=== PATIENT | female | born 1990 | race Caucasian/White ===

== ENCOUNTER 2023-11-20 13:55 | Outpatient (CLI) | payer BC, SELFPAY ==
--- NOTE | 2023-11-20 14:00 | CRLHL7_ITS ---
For Patients: As a result of the Century Cures Act, medical imaging exams and procedure reports are released immediately into your electronic medical record. You may view this report before your referring provider. If you have questions, please contact your health care provider. INDICATION: First trimester scan, establish dates. COMPARISON: None. TECHNIQUE: Real-time conklin-scale imaging of the pelvis was performed. FINDINGS: Sonographic imaging demonstrates a single living intrauterine gestation. The embryo demonstrates a regular cardiac rate measuring 169 beats per minute. The embryo`s crown-rump length measurement of 5.4 cm corresponds to a gestational age of 12 weeks 0 days with a sonographic due date of 06/03/2024. Yolk sac measures 5.9 millimeters. There are no gross abnormalities noted within the embryo at this early state of development. The gestational sac has a normal appearance. There is no evidence of a perigestational hemorrhage. The amount of fluid within the sac appears appropriate for gestational age. The cervix is closed. The myometrium appears normal. The ovaries are of normal size. Corpus luteal cyst left ovary. There are no suspicious fluid collections noted in the cul-de-sac. IMPRESSION: Single living intrauterine with sonographic gestational age 12 weeks 0 days and sonographic due date of 06/03/2024. Yolk sac measures 5.9 millimeters, upper limits of normal. Dictated by Luís Ley MD @ 11/21/2023 8:04:11 PM (Electronically Signed)
== END 2023-11-20 13:56 | disposition home or self-care (01) ==
LOC: US 13:55
PROVIDERS: Visit Provider Registered Nurse
DX: Z34.91 Encounter for supervision of normal pregnancy, unspecified, first trimester (principal); Z3A.12 12 weeks gestation of pregnancy
CPT/HCPCS: 76801; 86592; 86703; 86704; 86706; 86762; 86787; 86803; 86850; 86900; 86901; 87086; 87340; 87491; 87591

== ENCOUNTER 2024-01-13 12:52 | Outpatient (CLI) | payer BC, SELFPAY ==
--- NOTE | 2024-01-13 13:00 | CRLHL7_ITS ---
For Patients: As a result of the 21st Century Cures Act, medical imaging exams and procedure reports are released immediately into your electronic medical record. You may view this report before your referring provider. If you have questions, please contact your health care provider. OB ULTRASOUND INDICATION: screen. COMPARISON: 11/09/2023. ROEL by LMP: 06/06/2024. 06/06/2024. GA: 19 w, 5 d. FINDINGS: position: Breech. Cervix: Visualized. Technique: Transabdominal. Length of closed cervix: 3.1 cm. Placenta position: Anterior. Placenta tip to internal OS: 4.7 cm. Umbilical Cord: 3-vessel cord. Placenta insertion: Central. Amniotic Fluid: 4.5 cm SDP SURVEY: Observed Structures: Calvarium/Spine: Cerebellum: 1.8 cm, 19 w 0 d. Cisterna Magna: 5.4 mm. Nuchal Fold: 4.6 mm. Lateral Ventricle: 6.0 mm. CSP: Yes. Midline Falx: Yes. Choroid Plexus: Yes. Spine: Not well seen. Abdomen: Stomach: Yes. Abd Cord Insertion: Yes. Urinary Bladder: Yes. Kidneys: Not well seen. Diaphragm: Yes. Face: Nose/lips: Yes. Orbital view: Yes. Profile: Yes. Limbs: Upper Extremities: Yes. Lower Extremities: Yes. Hands: Yes. Feet: Yes. Vascular: Four-Chamber Heart: Yes. LVOT: Yes. RVOT: Not well seen. 3VV: Yes. 3VTV: Yes. BPD: 4.4 cm. 19 w 2 d, 29 percent. HC: 16.4 cm. 19 w 1 d, 17 percent. AC: 14.4 cm. 19 w 5 d, 45 percent. FL: 3.0 cm. 19 w 2 d, 27 percent. FL/AC: 20.89 percent. HC/AC Ratio: 1.14. Heart rate: 149 beats per minute. age by this US: 19 w, 2 d. ROEL by this US: 06/06/2024. EFW: 295 g. Weight: 10 oz. Percentile by ROEL: 32 percent. IMPRESSION: 1. Measurements are consistent with dates. Good interval growth since the prior exam. 2. Spine, kidneys, and right ventricular outflow tract are not well seen. Recommend follow-up images in a couple weeks. 3. Otherwise normal anatomic survey. Ash Cruz M.D. Body/Diagnostic Radiologist [email or web address] JACKIE/Dictated by: Ash Cruz MD @ 01/13/2024 3:26:00 PM (Electronically Signed)
== END 2024-01-13 12:53 | disposition home or self-care (01) ==
LOC: US 12:53
PROVIDERS: Visit Provider Obstetrics & Gynecology
DX: Z34.92 Encounter for supervision of normal pregnancy, unspecified, second trimester (principal); Z3A.19 19 weeks gestation of pregnancy
CPT/HCPCS: 76805; 84439; 84443

== ENCOUNTER 2024-01-13 14:13 | Outpatient (CLI) | payer BC, SELFPAY | END 2024-01-13 14:14 | disposition home or self-care (01) | PROVIDERS: Visit Provider Obstetrics & Gynecology | DX: Z34.02 Encounter for supervision of normal first pregnancy, second trimester (principal); Z83.49 Family history of other endocrine, nutritional and metabolic diseases | CPT/HCPCS: 83520; 84439; 84443; 84481 ==

== ENCOUNTER 2024-02-05 13:39 | Outpatient (CLI) | payer BC, SELFPAY ==
--- NOTE | 2024-02-05 13:45 | CRLHL7_ITS ---
For Patients: As a result of the Century Cures Act, medical imaging exams and procedure reports are released immediately into your electronic medical record. You may view this report before your referring provider. If you have questions, please contact your health care provider. ROEL by LMP: 06/06/2024. GA: 22w, 4d. Single. INDICATION: Follow-up FAS, spine, kidneys, RVOT. CERVIX: Visualized. Measurement: 3.3. POSITIONING: Transverse right. AMNIOTIC FLUID: 4.7 cm. PLACENTA: Technique: Transabdominal. PLACENTA POSITION: Anterior. DOPPLER: heart rate: 150 bpm. Biometry: BPD: 5.4 cm. 22w, 2d, 34.1 percent. HC: 20.1 cm. 22w, 2d, 24.1 percent. AC: 19.6 cm. 24w, 2d, 88.4 percent. FL: 3.9 cm. 22w, 5d, 42.6 percent. FL/AC ratio: 20.14 percent. HC/AC ratio: 1.03. EFW: 588.17 g. Weight: 1 lbs, 5 oz. age by this US: 22w, 6d. ROEL by this US: 06/04/2024. Percentile by ROEL: 81.7 percent. IMPRESSION: Single live intrauterine gestation. The outflow tracts, kidneys and spine appear within normal limits. 22 weeks 6 days. ROEL of 06/04/2024. Miroslava Burgos M.D. Diagnostic/Breast Radiologist [email or web address] QUITA/david / bM/Dictated by: Miroslava Burgos MD @ 02/07/2024 8:31:00 AM (Electronically Signed)
== END 2024-02-05 13:40 | disposition home or self-care (01) ==
LOC: US 13:40
PROVIDERS: Visit Provider Obstetrics & Gynecology
DX: Z34.92 Encounter for supervision of normal pregnancy, unspecified, second trimester (principal); Z3A.22 22 weeks gestation of pregnancy
CPT/HCPCS: 76816

== ENCOUNTER 2024-03-04 13:10 | Outpatient (CLI) | payer BC, SELFPAY | END 2024-03-04 13:11 | disposition home or self-care (01) | LOC: NFLDREF 03-05 14:14 | PROVIDERS: Visit Provider Obstetrics & Gynecology | DX: Z34.92 Encounter for supervision of normal pregnancy, unspecified, second trimester (principal); Z3A.27 27 weeks gestation of pregnancy | CPT/HCPCS: 85461; 86592; 86850 ==

== ENCOUNTER 2024-05-02 09:26 | Outpatient (CLI) | payer BC, SELFPAY ==
[2024-05-02 09:35] VITALS: PULSE 85; O2SAT 98
[2024-05-02 09:40] VITALS: PULSE 78; O2SAT 98
[2024-05-02 09:43] VITALS: BP 110/71; PULSE 85; TEMP 36.6
[2024-05-02 10:24] LABS: Amnisure Rom* Negative
[2024-05-02 10:44] LABS: Trichomonas No Trichomonas Seen (None Seen); Yeast No Yeast Seen (None Seen)
[2024-05-02 10:45] LABS: Clue Cells No Clue Cells Seen (None Seen)
--- NOTE | 2024-05-02 12:34 | PC.OBNST ---
NST Note NST Note Start: 05/02/24 09:29 Freq: ONCE Status: Active Protocol: Document 05/02/24 12:21 FJZ (Rec: 05/02/24 12:22 FJZ Desktop) NST Note 1 Para (# of births) 0 EDC 06/03/24 Gestational Age In Weeks & Days 35 Weeks & 3 Days Patient Presented with Complaint(s) of Leaking fluid Reactive Yes RN Evert Hardy RN Date 05/02/24 Reactive Yes TRISTEN Prasad RN Date 05/02/24 OB NST charge Yes Complete NST Note via Write Note Yes The provider's electronic signature indicates the NST is reactive/appropriate for gestational age. *Note to provider: If an addendum is required, open the patient's chart and click on the note under the Nurse/Allied Health tab.
== END 2024-05-02 11:11 | disposition home or self-care (01) ==
LOC: OB OUT 09:26 → OB 09:27
PROVIDERS: Visit Provider Obstetrics & Gynecology
DX: O47.03 False labor before 37 completed weeks of gestation, third trimester (principal); Z3A.35 35 weeks gestation of pregnancy
CPT/HCPCS: 59025; 84112; 87210; G0463

== ENCOUNTER 2024-05-06 13:30 | Outpatient (CLI) | payer BC, SELFPAY | END 2024-05-06 13:31 | disposition home or self-care (01) | LOC: NFLDREF 05-13 01:45 | PROVIDERS: Visit Provider Obstetrics & Gynecology | DX: Z34.03 Encounter for supervision of normal first pregnancy, third trimester (principal) | CPT/HCPCS: 87081; 87653 ==

== ENCOUNTER 2024-05-25 10:04 | Inpatient (IN) | payer BC, SELFPAY ==
[2024-05-25] VITALS (26 sets, daily range): BP systolic 95–118; BP diastolic 55–76; PULSE 61–90; RESP 16; TEMP 36.4–36.8; O2SAT 91–100; BMI 28.4; BMI 28.3
[2024-05-25] MEDS: LACTATED RINGERS 1000 ML 1,000 ML IV (09:45)
--- NOTE | 2024-05-25 09:51 | P.OBHP_ITS ---
OB - H&P: HPI Labor/Induction History of Present Illness Time Seen by Provider: 09:51 Date Seen: 05/25/24 Chief Complaint: Rule out labor, spontaneous decelerations Chief complaint: maternity Narrative: Shant is a 33-year-old at 38 weeks 5 days gestational age by first-trimester ultrasound who presented to triage for rule out labor. is complicated by a history of anxiety and panic disorder. Patient noted onset of latent labor yesterday, progressing to regular/painful uterine contractions overnight. Prior to arrival, she noted her contractions were occurring about every 2 minutes. She noted some dark red bleeding this morning, small volume that was mixed with mucous. She denies any rufino vaginal bleeding. No leakage of fluid consistent with rupture of membranes. She notes baby seems to be a bit less active over the last day, but did get a normal kick count yesterday. She is otherwise in her normal state of health. Specific Issues/Plans Shant G1 Partner: Augie. Low risk NIPT, baby girl! Name: undecided. # Anxiety. Well managed on 20 mg of citalopram. #Rh NEGATIVE. * Received RhoGam 03/04/24 # Indeterminant Hep B Ab. - low risk for hepB, no indication for repeat vaccination at this time. # Anemia: hgb 10.7 at 27 weeks Start ferrous sulfate QOD Stop vitamin if it has iron in it. Recheck hgb at 34 weeks: 11.2 Ultrasounds: 01/13/2024: Anterior placenta, no previa, three-vessel cord, normal fluid, EFW 32%, AC 45%. Spine, kidneys, and RVOT not well seen. Otherwise normal anatomy. Covid: Completed, not up-to-date boosters. Recommended. Patient declined. Flu: declined 03/04/2024 Tdap: 04/01/24 RSV: 04/15/24 Rhogam: 03/04/2024 Meds Home Medications and Allergies Home Medications ?Medication ?Instructions ?Recorded ?Confirmed ?Type docosahexaenoic acid 200 mg 200 mg PO DAILY 11/20/23 05/20/24 History capsule ( DHA) psyllium husk 0.4 gram capsule 0.4 g PO ONCE 11/20/23 05/20/24 History (Metamucil) ferrous sulfate 324 mg (65 mg 324 mg PO Q OTHER DAY 03/18/24 05/20/24 History iron) tablet,delayed release Allergies Allergy/AdvReac Type Severity Reaction Status Date / Time No Known Drug Allergies Allergy Verified 05/20/24 13:51 OB - H&P: Exam Physical Exam: Vital signs: Pulse Ox 100 05/25/24 09:47 Narrative: General: Alert and oriented, no acute distress. Lying on her left side, grimaces with contractions. Psych: Appropriate mood and affect Abdomen: Gravid. Tyson regularly, resting tone is soft. FHR: Immediately with initiation of external monitoring, there was note of recurrent and spontaneous decelerations to a cecil of 70 beats per minute. heart rate improved to about 120bpm, then gradually decreased to a cecil of 90, improved to baseline of 140bpm and decelerated again to a cecil of 110bpm. Throughout this time, maternal repositioning was initiated for resuscitation. I was called and requested at the bedside, requested RN draw up terbutaline due to concern for tachysystole. When I arrived to the bedside, FHR was noted to be 140bpm, terbutaline was held. IV insertion was ongoing. Requested stat labs including CBC, type and screen and coags. Requested we start an IV fluid bolus and plan for admission. Cervix: 8/100/0, bulging bag of water. Cephalic presentation. OB - Problem Based A/P Additional Plan (1) : Status: Acute (2) History of panic attacks: Problem details: Before starting anxiety meds. Status: Acute (3) Anxiety: Status: Chronic Plan Shant is a 33 at 38w5d gestational age admitted for spontaneous onset of labor and category 2 heart rate tracing. is complicated by a history of anxiety and panic disorder. Patient is 8/100/0 on admission. She initially had recurrent decelerations, but this responded well to resuscitation to the matters with IV fluids and maternal repositioning. She is hopeful for an epidural placement, anesthesia notified. Just prior to transfer to a labor room, SROM occurred with meconium-stained fluid at 1006. Patient noted increased pelvic pressure and urge to push. She was emergently transferred into labor room, where monitoring was resumed. Sterile vaginal exam confirmed she was 10/100/+1. FHR was noted to be 90bpm. Maternal expulsive efforts began, anesthesia was called off. Pediatrics was requested for delivery. BT O negative, GBS negative. Please see vaginal delivery note for complete details.
[2024-05-25 10:02] LABS: Basophils Percent Auto 0.1 % (0.0-3.0); Eosinophils Percent Auto 0.2 % (0.0-7.0); Hematocrit 35.8 % (33.0-51.0); Hemoglobin* 12.5 gm/dL (12.0-16.0); Immature Granulocytes Pct Auto 0.5 %; Lymphocytes Percent Auto 10.1 % (20-44); Mean Corpuscular HGB Conc 35 gm/dL (32-36); Mean Corpuscular Hemoglobin 30 pg (26-34); Mean Corpuscular Volume 86 fL (80-100); Monocytes Percent Auto 4.9 % (0.0-11.0); Neutrophils Percent Auto 84.2 % (42.0-72.0); Platelet Count* 188 K/uL (140-440); RDW Coefficient of Variation % 12.5 % (11.5-15.5); Red Blood Count 4.17 m/uL (4.00-5.20); White Blood Count* 16.76 K/uL (4.50-11.00)
[2024-05-25 10:10] LABS: Slide Review Reflex No
[2024-05-25 10:17] LABS: INR 0.94 (0.91-1.10); Prothrombin Time 13.1 Seconds
[2024-05-25 10:18] LABS: Fibrinogen* 567 mg/dL (200-450); Partial Thromboplastin Time* 26 Seconds (23-33)
[2024-05-25] MEDS: OXYTOCIN 30 unit/500 ML in NS 30 UNIT/500 ML BAG 300 UNIT IVPB (10:21)
[2024-05-25] MEDS: fentaNYL 100 MCG/2 ML inj IVP (10:28)
[2024-05-25] MEDS: METHYLERGONOVINE MALEATE 0.2 MG/ML INJ IM (10:32)
[2024-05-25] MEDS: LIDOCAINE 1 % PF 30 ML INJECTION (10:40)
[2024-05-25] MEDS: TRANEXAMIC ACID 100 MG/ML INJ 1000 MG IV (10:52)
[2024-05-25] MEDS: ONDANSETRON 2 MG/ML inj 4 MG IV (11:02)
--- NOTE | 2024-05-25 12:01 | W.PM.VAGDEL1 ---
Procedure Procedure Done: Global Procedure Details: Vacuum assisted vaginal delivery Manual removal of the placenta Vaginal laceration repair Events: Meconium Stained Fluid and Other (Precipitous labor) Intrapartal Events: Precipitous Labor <3 Hrs Delivery monitor: internal FHT Route of delivery: vacuum extraction Indication for instrumentation: nonreassuring FHR tracing Laceration description: Vaginal - 2nd Degree Delivery repair: Vicryl Estimated blood loss (mL): 1,250 Anesthesia type: IV fentanyl for manual removal of placenta and repair Disposition: floor Complications: hemorrhage secondary to bleeding vaginal laceration and suspected abruption requiring manual extraction of the placenta Narrative: Carla Mendez is a 33 yo at 38w5d GA admitted for spontaneous onset of labor and nonreassuring heart tones. is complicated by precipitous labor, anxiety. heart tones on admission were category 2. Her labor progressed spontaneously without augmentation. Natural methods were used for pain control due to precipitous delivery. Status of bag of womack: SROM occurred shortly after arrival to the hospital, meconium-stained fluids. heart tones during active labor were category 2. She was complete at 1012, during which time heart tones were 80 beats per minute. I requested a scalp electrode, this was applied emergently no complication. FSE did confirm gradual improvement in the heart rate to 100 beats per minute. station was noted to be +1. Decision was made to proceed with a trial of pushing, to see if descent could be accomplished with maternal effort in an expeditious manner. After single expulsive effort, descent was noted to +2. Recurrent variable deceleration was noted with pushing effort, then gradually improved to 90-100bpm. A 2nd spontaneous pushing effort commenced, where descent made to +3 station, direct OA position. This time, heart rate only improved to 80-90 beats per minute after push. I then recommendation we proceed with a vacuum assisted vaginal delivery due to recurrent variable decelerations without appropriate recovery. Emergent verbal consent was obtained, where I reviewed the benefit of an expedited delivery and risks including head bruising, bleeding, laceration, nerve palsy and increased incidence of maternal lacerations. Verbal consent was given. Vaginal exam revealed adequate pelvis, fetus in direct OA position and +3 station. A Kiwi vacuum was applied over the sagittal suture, approximately 3cm in front of the posterior fontanelle at 1019. Vacuum pressure was created with the hand pump, not to exceed 500mg ([place]). The edge of the vacuum cup was palpated circumferentially to confirm that no maternal tissue was entrapped under the cuff. With the left hand applying count pressure on the vacuum cup, gentle traction was applied along the pelvic axis in coordination with the next uterine contraction and maternal expulsive effort. Baby descended easily to with a single pull/push effort, no pop offs occurred. The vacuum was removed. head delivered OA atraumatically at 1020, restituted CRISTOPHER and the anterior and posterior shoulders delivered without difficulty at 1020. Nuchal cord: absent. The cord was clamped and cut immediately, where shortly thereafter cry was noted. Active management of the third stage occurred with IV pitocin and gentle cord traction, however brisk bleeding was noted. I attempted to tamponade the vaginal/perineum, but bleeding persisted. Maternal expulsive effort to facilitate placenta delivery was attempted and unsuccessful. I requested 100mcg IV fentanyl be administered. Explained to Carla that I would recommend we proceed with manual removal of the placenta in the setting of active bleeding, QBL 750mL. Fentanyl 100mcg was administered IV at 1028. Manual removal of the placenta was performed, where the placenta delivered at 1031. Methergine was administered at 1032 to reinforce uterine tone and reduce bleeding. Inspection of the placenta was performed, where no obvious disruption or retained portions were noted. Still, I did proceed to a manual sweep of the uterus ensure all placenta/membrane was removed. No further tissue was noted with manual sweep of the uterus. Cord gases sent: yes Cord blood sent for infant ABO: yes details: - Liveborn female fetus at 1020 - weight 3000g - APGARs were 7 and 9 at 1 and 5 minutes respectively - No bruising/swelling noted at site of vacuum application per POLLY Whitting[place] Perineum and vagina were inspected, where a complicated vaginal laceration was noted and found to be actively bleeding. Specifically, there was a midline vaginal laceration that extended to the introitus then extended laterally (left greater than right). IV TXA was requested and administered. A 2-0 vicryl was applied in a running, locking fashion starting at the apex of the right lateral aspect of the laceration. This was run to the midline and tied. A second 2-0 vicryl was then applied at the most proximal aspect of the vaginal laceration and tied. A 2cm segment of the distal vagina was noted to have nearly avulsed and was retracting to the left. The base of the vaginal defect was repaired with several interrupted 2-0 vicryl sutures. The retracted vaginal tissue was then reapproximated, where two figure of eight sutures were utilized to secure this and approximate it to the intact vaginal tissue. A 2-0 vicryl was then utilized to reinforce the vaginal repair proximal to distal in a running/locking fashion until the hymen was encountered. A single deep suture was applied at the vaginal introitus to reapproximate skin. The perineal skin was essentially intact, aside from a small area of separation just at the introitus left of midline. A subcuticular stitch was applied with 3-0 vicryl and tied to close this. Excellent hemostasis was noted. Excellent uterine tone noted. Post-delivery TAUS was performed ensuring a thin, homogenous endometrial stripe with no evidence of retained products of conception. The following counts were correct: sponges, needles, instruments. Mother and infant in stable condition following the . Gender: Female presentation: vertex Placental Delivery Description: Manual Removal
[2024-05-25] MEDS: CEFAZOLIN 2 GM in 0.9 % SODIUM CHLORIDE Mini-bag 100 ML IVPB (14:45)
[2024-05-25] MEDS: ACETAMINOPHEN 500 MG TABLET 1000 MG PO ×2 (15:50→23:02)
[2024-05-25] MEDS: IBUPROFEN 600 MG TABLET PO (20:01)
[2024-05-26 05:46] VITALS: BP 118/73; PULSE 89; RESP 18; TEMP 36.6; O2SAT 99
[2024-05-26 06:53] LABS: Hemoglobin* 9.1 gm/dL (12.0-16.0)
[2024-05-26] MEDS: DOCUSATE SODIUM 100 MG CAPSULE PO (07:48)
[2024-05-26] MEDS: IBUPROFEN 600 MG TABLET PO ×2 (07:49→16:28)
[2024-05-26 09:10] VITALS: BP 105/67; PULSE 105; RESP 16; TEMP 36.9; O2SAT 97
--- NOTE | 2024-05-26 10:23 | P.OBPN_ITS ---
OB - PN:Subj Subjective Date Seen: 05/26/24 Patient comments OB post-: no complaints, pain well controlled, tolerating diet and flatus present [place] status: (working on latch) and doing well feeding status: exclusively Narrative: Carla feels well.? Her pain is well controlled with current medications.? She has no new complaints.? Urinary output is adequate and she is voiding without difficulty.? Has a good appetite, is tolerating a general diet, is passing flatus, and has not had a bowel movement.? Has small amount of rubra lochia.? She is ambulating well.?She is working on baby waking to [employer]. She requested to have her perineum looked at but denies concerns with how it is feeling. It look well approximated with mild swelling. OB - PN: Obj Exam Physical Exam: Vital signs: Temp Pulse Resp BP Pulse Ox O2 Del Method 98.5 F 105 H 16 105/67 97 Room Air 05/26/24 09:10 05/26/24 09:10 05/26/24 09:10 05/26/24 09:10 05/26/24 09:10 05/26/24 09:10 Narrative: GENERAL APPEARANCE:? normal affect, alert, no distress? MOOD:? appropriate? CHEST:? clear to auscultation and percussion? HEART:? regular rate and rhythm? ABDOMEN:? soft, non-tender the uterine fundus is U/2 and is appropriate for the stage of recovery. PERINEUM:? mild edema of the perineum, there is a 2nd degree laceration that is healing well.? EXTREMITIES:? normal and no edema? OB - PN: Obj Data Labs Labs: Laboratory Results - last 24 hr 05/25/24 05/25/24 05/26/24 09:42 11:30 06:30 Hgb 11.0 L 9.1 L Blood Type O Negative Antibody Screen POSITIVE Screen Negative Crossmatch (AHG) See Detail OB - PN: A/P Delivery Assessment and Plan (1) : Status: Acute (2) History of panic attacks: Problem details: Before starting anxiety meds. Status: Acute (3) Anxiety: Status: Chronic Plan day: 1 Plan: routine care Comments: Anticipate discharge home tomorrow.
[2024-05-26] MEDS: FERROUS SULFATE 325 MG TABLET PO (13:05)
[2024-05-26] MEDS: ACETAMINOPHEN 500 MG TABLET 1000 MG PO (13:05)
[2024-05-26 16:05] VITALS: BP 101/65; PULSE 84; RESP 16; TEMP 36.7; O2SAT 97
[2024-05-27 00:18] VITALS: BP 112/72; PULSE 84; RESP 16; TEMP 36.3; O2SAT 97
[2024-05-27 01:01] LABS: Rapid Plasma Reagin (RPR) Non Reactive (Non Reactive)
--- NOTE | 2024-05-27 08:19 | PM.OBDSVD1 ---
DS: Providers Provider Date Seen: 05/27/24 Date of admission: 05/25/24 10:04 Primary care physician: Not a Local Provider Admitting Clinician: Patricia Khanna MD Attending Physician on discharge: Charlene Garcia CNM DS: Diagnosis Discharge Diagnosis (1) care and examination immediately after delivery: Status: Acute (2) Lactating mother: Status: Acute (3) Anemia due to acute blood loss: Status: Acute (4) Anxiety: Status: Chronic Exam Narrative: Exam Narrative: GENERAL APPEARANCE:? normal affect, alert, no distress MOOD:? appropriate CHEST:? clear to auscultation HEART:? regular rate and rhythm ABDOMEN:? soft, non-tender the uterine fundus is At Umbilicus, Midline and is appropriate for the stage of recovery. PERINEUM:? mild edema of the perineum, there is a vaginal laceration,?2nd degree, that is healing well. EXTREMITIES:? normal and no edema Const: Vital Signs, click to edit/add: Vital Signs - 24 hr 05/26/24 09:10 05/26/24 16:05 05/27/24 00:18 Temperature 98.5 F 98.0 F 97.3 F L Pulse Rate [Pulse Oximeter] 105 H 84 84 Respiratory Rate 16 16 16 Blood Pressure [Ri ght Arm] 105/67 101/65 112/72 Pulse Oximetry 97 97 97 Oxygen Delivery Me thod Room Air Room Air Room Air Documenting provider has reviewed patient's vital signs: yes OB - DS: Summary Hospital Course Hospital Course: Carla is a 33 y.o. G 1 P 1 who was admitted to [facility] for spontaneous onset of labor.?She had a vacuum assisted vaginal delivery that was complicated by PPH of 1250. The patient feels well. ?The pain is well controlled with current medications. ?She has no new complaints. ?She is breast feeding and reports things are going well. the patient has done well.? Vitals have been stable.? She has remained afebrile.? Has a good appetite, is tolerating a general diet. ?She is voiding without difficulty.? She is passing gas and has not had a bowel movement.? She is ambulating and denies any dizziness.? Has small amount of rubra lochia. She is planning condoms for prevention. Problems: Anemia Discharge home with baby.? Follow up in 2 weeks and 6 weeks.? , may see if needed? Hgb 9.1. Iron supplement ordered orally every other day?? For pain control of perineum, breast and pelvic pain, take 600 mg Ibuprofen every 6 hours as needed by mouth or 1000 mg acetaminophen (Tylenol) every 6 hours by mouth as needed. You can alternate these so you are taking something every 3 hours as needed. A heating pad can also be used for your abdomen or breasts. You may also take docusate sodium up to twice daily to soften your stools and help to prevent constipation. You may wean off of it when your stools return to normal.? Peripartum Data delivery method: Vaginal Laceration description: Vaginal - 2nd Degree complications: none [place] Infant Gender: Female Discharge Plan: Home Status at Discharge Functional status at discharge: independent ambulation Overall status at discharge: patient is progressing back to baseline Time Spent with Patient Time attestation: Total time spent providing and/or coordinating discharge services: Time spent: Less than 30 minutes Discharge Plan Discharge Disposition: Home, Self-Care Date of Admission: 05/25/24 10:04 Attending Provider on Discharge: Charlene Garcia Primary Care Provider: Provider,Not a Local Condition: Stable Anticipated Discharge Date/Time: 05/27/24 12:00 Discharge Medications: New acetaminophen 500 mg Tablet 1,000 mg PO Q6H PRN (Reason: pain/fever) Qty: 0 0RF ferrous sulfate 325 mg (65 mg iron) Tablet 325 mg PO DAILYWM Qty: 60 0RF docusate sodium 100 mg Capsule 100 mg PO DAILY Qty: 90 0RF ibuprofen 600 mg Tablet 600 mg PO Q6H PRNQty: 60 0RF Continued ferrous sulfate 324 mg (65 mg iron) tablet,delayed release (DR/EC) 324 mg PO Q OTHER DAY DHA 200 mg capsule 200 mg PO DAILY psyllium husk [Metamucil] 0.4 gram capsule 0.4 g PO ONCE escitalopram oxalate 20 mg tablet 20 mg PO QDAY Qty: 90 3RF Discharge Orders: Discharge Order (Routine); Ordered 05/27/24 Ordered By: Charlene Garcia Patient Education: OB Over the Counter Medication Information, OB Vaginal/Breast Feeding Additional Instructions: Discharge instructions were reviewed with the patient including signs and symptoms of infection and home going medications Nothing vaginally for 6 weeks: no tampons or intercourse Off Work or School for 6 weeks 2-week visit: discuss infant feeding concerns, review control options and screen for anxiety/depression. 6-week visit for an annual exam. consultation services are available to all mothers and babies for the first year after delivery.? To make an appointment, please call [phone]. Activity Level: Activity as Tolerated Discharge Diet: Regular Follow Up Appointments: [facility] [Provider Group] Forms: [employer] Info Instructions
[2024-05-27 08:50] VITALS: BP 116/74; PULSE 102; RESP 16; TEMP 36.6; O2SAT 98
[2024-05-27] MEDS: DOCUSATE SODIUM 100 MG CAPSULE PO (08:50)
[2024-05-27] MEDS: FERROUS SULFATE 325 MG TABLET PO (08:50)
[2024-05-27] MEDS: IBUPROFEN 600 MG TABLET PO (08:50)
== END 2024-05-27 13:35 | disposition home or self-care (01) | DRG 541 ==
LOC: OB OUT 10:04 → OB 10:05
PROVIDERS: Admitting Provider Obstetrics & Gynecology; Visit Provider Obstetrics & Gynecology
DX: O26.893 Other specified pregnancy related conditions, third trimester (principal); Z67.41 Type O blood, Rh negative; O76 Abnormality in fetal heart rate and rhythm complicating labor and delivery; O72.1 Other immediate postpartum hemorrhage; O99.344 Other mental disorders complicating childbirth; F41.0 Panic disorder [episodic paroxysmal anxiety]; O99.02 Anemia complicating childbirth; D62 Acute posthemorrhagic anemia; O70.1 Second degree perineal laceration during delivery; O77.0 Labor and delivery complicated by meconium in amniotic fluid; O62.3 Precipitate labor; Z37.0 Single live birth; Z3A.38 38 weeks gestation of pregnancy
CPT/HCPCS: 36415; 76815; 85018; 85025; 85384; 85461; 85610; 85730; 86592; 86850; 86870; 86880; 86900; 86901; 86922; 88307; A9270; J0690; J2003; J2210; J2405; J2791; J3010; J7120

== ENCOUNTER 2024-05-30 15:00 | Outpatient (CLI) | payer BC, SELFPAY ==
--- NOTE | 2024-05-30 15:28 | W.PM.LAC.MC ---
Consult Note - Mom Date of Visit Date of visit: 05/30/24 Reason for consultation: Assistance Needed (latch assist, painful) and Breast/Nipple Issue Visit Code: Visit Patient's Information Phone number: [phone] : 1 Para: 1 Allergies No Known Drug Allergies Allergy (Verified 05/20/24 13:51) Mother's medical history: Post hemorrhage (1250 EBL) Mother's Medical History: Medical History (Updated 05/28/24 @ 00:00 by Background Daemon) Encounter for preconception consultation ?Z31.69 - Encounter for other general counseling and advice on procreation (ICD-10) Evaluate anatomy not seen on prior sonogram History of panic attacks ?Z86.59 - Personal history of other mental and behavioral disorders (ICD-10) Delivery Information Delivery type: Vaginal Gestational Age: 38+3 Gestational Weight For Age: AGA Weight: 3 kg Discharge Weight: 2.835 kg Percentage weight loss: 5.5 Baby's Information Baby's Age at Visit: 5 days Baby's Provider or Clinic: [facility] Jaundice: Yes Past Experience Past Experience: No Current Frequency of Day Feedings: every 3 hrs day and night; wakes self ~50% of the time Both Breasts: Yes (sometimes) Suck: starts strong, gets lazy about 8-10 min Latch: seems deep but still painful Length of Time: 10-15 min Goals: not sure yet Pumping Pumping: Yes Quantity Pumped: 40 ml with one pumping so far Supplementing EBM Supplement: No Formula Supplement: No Baby Elimination Number of Wet Diapers a Day: 6 or more Number of BM a Day: 3 in last 24 hrs, yellow, seedy Breast/Nipple Condition Breast Information: Breasts are mostly symmetrical with rounded lower quadrants, intramammary distance is less than 1.5 inches. No erythema. Left breast slightly larger since babe not nursing as well on that side. Nipples are supple, everted prior to feeding. Breast Shape: Round Engorgement: Yes Interventions for Engorgement: Warm Pack and Hand Expressing Breast Milk Maternal Nipple Condition - Left: Common Nipple and Cracking/ Fissures Maternal Nipple Condition - Right: Common Nipple Sore Nipples: Yes Interventions for Sore Nipples: Lansinoh/Nipple Cream and Soothies/Hydrogel Pads Baby Assessment Skin: Normal and Yellow (head to mid-chest) Tongue/frenulum: Restricted mid-range Palate: Average Lips: Relaxed and Symmetrical Jaw Alignment: Symmetrical Mucosa: [place], moist Onsite Observation Pre-Feed weight: 2.92 kg Post-Feed weight: 2.946 kg Milk Transferred (mL): 26 Position: Football (right) and Other (refused latching to left side) Attachment/latch-on achieved: With difficulty Suck pattern: Suck burst and normal rest Swallow: Audible, consistent Behavior following feed: Alert, fussy Pre-Nursing Left Nipple: Redness Pre-Nursing Right Nipple: Redness Post-Nursing Right Nipple: Redness Assessments/Interventions Assessments/Interventions: observation: Mom attempted to latch baby to left breast but babe unwilling despite multiple positions tried, calming techniques, hand expression tried. Then attempted to latch baby to right breast, which is usually easy but babe still fussy with this. Eventually latched well and nursed for 13 minutes, transferred 26 ml of milk. Still acting hungry, tried again to latch baby to left side and babe again unwilling despite multiple attempts. Mom pumped and got 25 ml of milk; babe too 15ml via paced bottle feeding as was content. Mom's nipples look pretty similar so unclear as to baby's preference for right breast; seems more than positioning given multiple positions tried. Babe does have a posterior tongue tie; discussion about this and how it can affect feeding with parents. Referral to Pediatric Dentist given for further evaluation. Mom to pump left breast if babe won't nurse on that side to maintain milk supply and to have EBM for baby. Parents will bottle feed EBM; have Dr. Tineo bottles at home. Paced feeding discussed as well feeding volumes expected over next few days/week. Education provided: Early feeding cues to maximize timing of latching, Asymmetric latch technique for wide/deep latch to increase milk, Transfer for baby and increase comfort for mom, Supply/demand nature of milk supply, Need for frequent stimulation/milk removal, Sore nipple treatment options (breast shells discussed for nipple healing), Hand expression, Alternative feeding methods (SNS, cup, finger feeding, bottling) (parents asking about bottle options so discussed for supplementing with eBM), Use of nipple shield (mom may decide to try at home if latching continues to be an issue), Pumping for milk management (especially if babe not nursing on left side) and Milk collection, storage Feeding Plan: Continue to feed every 2-3 hours Offer both breasts ea feeding; if babe won't latch, need to pump breast not fed from for milk supply. Ok to pump about what babe needs and not a lot more to prevent oversupply. Babe latching might be sporadic; parents asked about pumping and bottling and reviewed this option with them if they desire. Mom would like to continue to work on some but recognizing current struggles and how to work within them both for her own nipple pain as well as baby's milk needs. Follow-Up Suggested follow up: Phone call in 24-48 hours (call in 4 days for update; they will call sooner with questions/concerns) Recommend baby be seen by provider for:: Pediatric Dentist re: tongue tie release Time Spent Time spent with patient (min): 90 (reviewing EMR and face to face with patient, , and ) Meds Home Medications and Allergies Home Medications ?Medication ?Instructions ?Recorded ?Confirmed ?Type docosahexaenoic acid 200 mg 200 mg PO DAILY 11/20/23 05/26/24 History capsule ( DHA) psyllium husk 0.4 gram capsule 0.4 g PO ONCE 11/20/23 05/26/24 History (Metamucil) ferrous sulfate 324 mg (65 mg 324 mg PO Q OTHER DAY 03/18/24 05/26/24 History iron) tablet,delayed release Allergies Allergy/AdvReac Type Severity Reaction Status Date / Time No Known Drug Allergies Allergy Verified 05/20/24 13:51
== END 2024-05-30 15:01 | disposition home or self-care (01) ==
LOC: OB LAC 15:04
PROVIDERS: Visit Provider Obstetrics & Gynecology
DX: Z39.1 Encounter for care and examination of lactating mother (principal)
CPT/HCPCS: G0463

== ENCOUNTER 2024-07-06 11:57 | Outpatient (CLI) | payer BC, SELFPAY | END 2024-07-06 11:58 | disposition home or self-care (01) | PROVIDERS: Visit Provider Registered Nurse | DX: R32 Unspecified urinary incontinence (principal); Z83.49 Family history of other endocrine, nutritional and metabolic diseases; Z13.29 Encounter for screening for other suspected endocrine disorder | CPT/HCPCS: 84443; 87086 ==

== ENCOUNTER 2024-11-16 11:00 | Outpatient (RCR) | payer BC, SELFPAY ==
--- NOTE | 2024-10-05 08:35 | PT.OPDN ---
PT [place] [facility] Daily Note PT [facility] Daily Note Start: 07/08/24 07:27 Freq: Status: Active Protocol: Document 10/05/24 07:33 ARR (Rec: 10/05/24 08:34 ARR [email or web address]) E-signed By Simran Lopez DPT PT OP Daily Progress Note Visit Information Note Type Daily Note,Recert/Progress Note Visit Number 10 Insurance Information Insurance Name [employer] Insurance POC 07/08 Information/Comments POC 1 x 10 Medical Diagnosis PFM weakness N81.89 female genital prolapse Treating Diagnosis K59.00 Constipation, unspecified R27.8 Lack of coordination (muscle incoordination) N39.46 Mixed incontinence Referring MD Nicloe Astudillo, [facility]) Subjective Preferred Name [facility] Subjective - Back at work x 2 weeks. Works from home. - Pain with intercourse 20%. - Urinary leakage can happen - more when holding 4 hours. Will feel like it's starting to leak. Prior to baby would go 6-7 hours prior to voiding. -Still difficult to stop a urine stream -Occasionally will have leakage with transfers Home Exercise Home Exercise OTHER: Comments -PF Check ins and drops 07/08 - awareness of tip toes squeezing thighs -AZO - discussion Access Code: [email or web address] URL: [email or web address] Date: 07/15/2024 Prepared by: Simran Lopez Program Notes -Add breathing into ribcage - hands on ribs during check in's 4-5x/day Exercises - Sidelying Thoracic Rotation - 1 x daily - 4-5 x weekly - 6-8 reps - mobility exercise type - Adductor Rock Back - 1 x daily - 4-5 x weekly - 6-8 reps - mobility exercise type - Cat-Camel - 1 x daily - 4-5 x weekly - 4-5 reps - Bolstered Child's Pose Breathing - 1 x daily - 4-5 x weekly - 2 reps - 30 sec hold - mobility exercise type Objective Other/Pertinent INTERNAL EXAMINATION INTRAVAGINAL 07/08/24: Objective EXTERNAL EXAM: -Sensation: intact to touch -Gaping: none -Tension/scar: inferior near 5 oclock position -Skin integrity: increased erythema to vaginal vestibule -Perineum: elevated (concave) -Cough: bulge -Lifting contraction: slight anal lift -Bulge: nil -Prolapse: not able to assess due to difficulty coordinating bearing down -Hemhorroids: NT VAGINAL INTERNAL EXAM: -Prolapse: NT POPQ NT Tenderness/pain to palpation/tone: : -Layer 1: ischiocavernosus / bulbospongiousus / superficial transverse perineal -Layer 2: deep transverse perineal -Layer 3: puborectalis / pubococcygeus / iliococcygeus *Inc?d tone throughout with minimal TTP. Strength ( R / C / L): -Power (MMT): 0 Other: -Breathing examination: dec?d posterior and lateral ribcage mvmt with inhalation -Coordination: bearing outward into lower abdominal wall noting increased bearing down into pelvic floor EXTERNAL OBJECTIVE 07/15/24: -Movement screen: MS flexion fingertips to ankle reduced TS with inc'd prominence of R thorax. MS extension reduced GHJ and TS. MS rotation WNL -SLS: hold for 30 sec with inc'd foot pronation/ collapse -Posture: elevated IC on R 2 thumbwidths. Inc'd TS kyhposis. Supine MM and ASIS lower on R. -Hip PROM: ER 80 R/L // IR 20 R/L -Strength: 2+ glut medius Other Tests: -Other: rib flare on R, less than 60* -Breathing: dec?d posterior and lateral ribcage mvmt with inhalation -DR: negative Special tests: -Flexibility: + IR Patient Instructed Yes in Risks/Benefits Therapeutic Exercise Therapeutic Exercise 25 Minutes (minutes) Therapeutic Exercise TE: Indicated for improvement in strengthening and : To Restore mobility. Functional Status -Handouts with written instructions and photographs of exercises were issued to the patient for exercises to be included in HEP. Answered patient questions regarding POC, and mobility/stretches to perform if pain occurs -Quadruped thread the needle to AROM rotation x 5 reps. Static breathing 30 sec ea side. -Adductor rock back x 8 reps ea side -Segmental cat/cow x 5 reps Neuromuscular Re-Ed Neuromuscular 30 Reeducation Minutes (minutes) Neuromuscular NMR: Indicated to facilitate improved muscle firing and Reeducation Comments postural awareness through the use of tactile cues. -TA on exhale 2 x 6 reps - With TR in small of back x 5 reps TR in small of back -Ball squeeze hooklying TA x 5 reps -Bent knee tip out x 4 reps ea side -SIdelying clam x 12 reps ea side -Quadruped TA with UE flexion x 5 reps -Quadruped TA with ball squeeze x 6 reps Self Care Management Training Self-Care Activity 2 Minutes (minutes) Self Care Management Education for patient included Training Goals for PT - (1) Continue with urine stop flow ? experiment with different levels of bladder fullness to see if it?s easier or harder with more/less urine in bladder - (2) Continue pelvic floor contractions focusing on the front pelvic floor muscles - (3) Continue to work on reducing constipation (goal type 3-4 stool frequency of 4x/week) - (4) Continue with deep breathing/mobility exercises and strengthening as prescribed - (5) Continue pelvic floor check in?s looking for elevated pelvic floor muscle tension Treatment Minutes Timed Code Treatment 57 Minutes Total Treatment Time 57 Billing Units Neuromuscular 2 Reeducation Units Therapeutic Exercise 2 Units Assessment/Impression Assessment/ Revision of HEP for proximal strengthening/coordination Impression targeting TA and gluts. Reviewed mobility/deep breathing exercises with intermittent vc for form. Pt to trial greater time btw visits with focus on greater indep mgmt of sx's. Plan of Care Physical Therapy STG (within 5 weeks) Goals 1) Pt will demonstrate proper coordination of motor recruitment patterns for TA activation during isometric activation while maintaining diaphragmatic breathing pattern - MET 2) Pt will report at least 50% improvement in urinary leakage since start of therapy for improved health of vaginal tissues - PROGRESSING TOWARD 3) Pt will report stool type 2 with ability to empty without straining. - MET LTG (within 10 weeks) 1) Pt will demonstrate proper coordination of motor recruitment patterns for TA activation during dynamic UE/LE movements in all postures while maintaining diaphragmatic breathing pattern - PARTIALLY MET 2) Pt will report resolved urinary leakage since start of therapy for improved health of vaginal tissues - PROGRESSING TOWARD 3) Pt will report stool type 3-4 with ability to empty without straining. - PROGRESSING TOWARD Daily Plan of Care -Review goals Comments -Reprint exercises - revise as indicated to improve consistency. Focus on PF revision with reps/sets. Recertification Information Initial 07/08/24 Certification Date Recertification 10/06/24 Start Date Reasons to Continue Pt had been seen for constipation, lack of coordination Skilled Therapy , mixed incontinence for 10 visits from 07/08/24 to 10/05 during this episode of physical therapy. F Focus of therapy on hip/spine ROM, deep breathing, PF lengthening, with progression to proximal coordination of PFTA and gluts. Treatment also included education optimizing bowel and bladder health for symptom reduction/mgmt. Interventions including ther exercise, manual therapy, self-care, neuromuscular re-education. 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 Further skilled PT is indicated at this time but at a lesser frequency of every other week x 6 visits with transition of focus to proximal strengthening/coordination. Pt continues to have urinary leakage likely secondary to sphincter weakness and proximal weakness of TA and gluts. Goal progress noted above Provider Signature POC & Medical Necessity Shows Agreement With Physician Comment/ Comment or Changes Change Physician NPI Number #
== END 2025-03-15 08:13 | disposition home or self-care (01) ==
PROVIDERS: Visit Provider Registered Nurse
DX: N81.89 Other female genital prolapse (principal); K59.00 Constipation, unspecified; R27.8 Other lack of coordination; N39.46 Mixed incontinence; Z51.89 Encounter for other specified aftercare
CPT/HCPCS: 97110; 97112; 97140; 97161; 97530; 97535

== ENCOUNTER 2025-02-18 08:05 | Emergency (ER) | payer BC, SELFPAY ==
[2025-02-18] VITALS (35 sets, daily range): BP systolic 86–122; BP diastolic 45–62; PULSE 95–121; RESP 10–33; TEMP 36.9–39.8; O2SAT 94–100; BMI 24.4
[2025-02-18 08:29] LABS: Appearance Urine Slightly Cloudy (Clear)
--- NOTE | 2025-02-18 08:32 | ED_ITS ---
HPI - General Adult General Chief complaint: Nausea/Vomiting Stated complaint: abdominal pain Time Seen by Provider: 02/18/25 08:06 History of Present Illness HPI narrative: Patient is a 34 year white female who for couple days has had nausea dizziness, some intermittent abdominal discomfort. No diarrhea, no cough. She has had a little bit of fever. No dysuria. She has a history of urinary incontinence, depression, panic attacks, anxiety. She denies knowing she is but is trying to get at this time. Her last menstrual period was last month. This was about 3 weeks ago. Child had RSV/croup. No chest pain or shortness of breath or leg swelling or edema. Patient also reports she has been on iron as her iron level has been low. Related Data Previous Rx's ?Medication ?Instructions ?Recorded escitalopram oxalate 20 mg tablet 20 mg PO QDAY #90 ta bs 02/15/25 escitalopram oxalate 20 mg tablet 30 mg (1.5 x 20 mg) PO QDAY #90 02/15/25 tabs amoxicillin 875 mg-potassium 1 tab PO BID 7 days #14 t abs 02/18/25 clavulanate 125 mg tablet Allergies Allergy/AdvReac Type Severity Reaction Status Date / Time No Known Drug Allergies Allergy Verified 02/18/25 08:14 Review of Systems Status of ROS: Reports: 6 or more systems reviewed and unremarkable except as noted in History and below [facility] Medical History Encounter for preconception consultation ?Z31.69 - Encounter for other general counseling and advice on procreation (ICD-10) Evaluate anatomy not seen on prior sonogram History of panic attacks ?Z86.59 - Personal history of other mental and behavioral disorders (ICD-10) Surgical History History of repair of ACL ?Z98.890 - Other specified postprocedural states (ICD-10) Family History Grandfather Heart disease Social History What is your current living situation?: I presently have a place to live Problems where you live: no known problems In the past 12 months, utilities in danger of being shut off: no In past 12 months, lack of transportation kept you from medical appts, meetings, work, or getting things needed for daily living: no In the past 12 mos, have been you worried that your food would run out before you had money to buy more?: never true In the past 12 mos, the food you bought just didn't last and you didn't have money to buy more?: never true Smoking Status: Never smoker How often does anyone, including family, friends and others, physically hurt you : never How often does anyone, including family, friends and others, insult or talk down to you: never How often does anyone, including family, friends and others, threaten you with harm: never How often does anyone, including family, friends and others, scream or curse at you: never Exam Narrative: Exam Narrative: Objective: Vital signs are within normal limits Alert or x3 Slightly pale HEENT is unremarkable dry mucous membranes neck is supple chest clear heart rhythm regular no murmur Abdomen benign soft nontender no mass or peritonitis Extremities are no edema Neurologic nonfocal No CVA tenderness Const: Vital Signs, click to edit/add: Vital Signs - 24 hr 02/18/25 08:09 02/18/25 10:26 02/18/25 10:31 Temperature 98.9 F 103.6 F H 103.6 F H Pulse Rate Pulse Rate [Right Pulse Oximeter] 95 116 H Respiratory Rate 18 22 Blood Pressure Blood Pressure [Ri ght Upper Arm] 95/57 L 122/62 Pulse Oximetry 98 100 Oxygen Delivery Me thod Room Air Room Air 02/18/25 10:46 02/18/25 10:47 02/18/25 11:00 Temperature Pulse Rate 111 H 110 H 110 H Pulse Rate [Right Pulse Oximeter] Respiratory Rate Blood Pressure 108/61 Blood Pressure [Ri ght Upper Arm] Pulse Oximetry 95 96 96 Oxygen Delivery Me thod 02/18/25 11:01 02/18/25 11:15 02/18/25 11:16 Temperature Pulse Rate 112 H 116 H 116 H Pulse Rate [Right Pulse Oximeter] Respiratory Rate Blood Pressure 103/55 L 96/51 L Blood Pressure [Ri ght Upper Arm] Pulse Oximetry 95 95 95 Oxygen Delivery Me thod 02/18/25 11:30 02/18/25 11:32 02/18/25 11:33 Temperature Pulse Rate 113 H 114 H 116 H Pulse Rate [Right Pulse Oximeter] Respiratory Rate Blood Pressure 88/50 L 95/46 L Blood Pressure [Ri ght Upper Arm] Pulse Oximetry 95 94 95 Oxygen Delivery Me thod 02/18/25 11:45 02/18/25 11:46 02/18/25 12:00 Temperature Pulse Rate 106 H 108 H 110 H Pulse Rate [Right Pulse Oximeter] Respiratory Rate 20 27 H 28 H Blood Pressure 91/45 L Blood Pressure [Ri ght Upper Arm] Pulse Oximetry 95 94 96 Oxygen Delivery Me thod 02/18/25 12:01 02/18/25 12:15 02/18/25 12:16 Temperature 98.5 F Pulse Rate 110 H 114 H Pulse Rate [Right Pulse Oximeter] Respiratory Rate 26 H 15 Blood Pressure 89/53 L Blood Pressure [Ri ght Upper Arm] Pulse Oximetry 96 96 Oxygen Delivery Me thod 02/18/25 12:16 02/18/25 12:30 02/18/25 12:31 Temperature Pulse Rate 112 H 111 H 110 H Pulse Rate [Right Pulse Oximeter] Respiratory Rate 18 27 H 27 H Blood Pressure 88/56 L 86/50 L Blood Pressure [Ri ght Upper Arm] Pulse Oximetry 95 96 96 Oxygen Delivery Me thod 02/18/25 12:45 02/18/25 12:46 02/18/25 13:00 Temperature Pulse Rate 106 H 110 H 110 H Pulse Rate [Right Pulse Oximeter] Respiratory Rate 32 H 33 H 22 Blood Pressure 94/49 L Blood Pressure [Ri ght Upper Arm] Pulse Oximetry 95 96 97 Oxygen Delivery Me thod 02/18/25 13:01 02/18/25 13:15 02/18/25 13:15 Temperature Pulse Rate 104 H 104 H Pulse Rate [Right Pulse Oximeter] Respiratory Rate 21 24 Blood Pressure 93/54 L Blood Pressure [Ri ght Upper Arm] 94/52 L Pulse Oximetry 96 97 Oxygen Delivery Me thod 02/18/25 13:16 02/18/25 13:17 02/18/25 13:30 Temperature Pulse Rate 106 H 105 H 110 H Pulse Rate [Right Pulse Oximeter] Respiratory Rate 18 12 25 H Blood Pressure 95/47 L Blood Pressure [Ri ght Upper Arm] Pulse Oximetry 97 97 96 Oxygen Delivery Me thod 02/18/25 13:31 02/18/25 13:36 02/18/25 13:45 Temperature Pulse Rate 109 H 109 H 110 H Pulse Rate [Right Pulse Oximeter] Respiratory Rate 22 10 L 24 Blood Pressure 104/57 L Blood Pressure [Ri ght Upper Arm] Pulse Oximetry 96 96 97 Oxygen Delivery Me thod 02/18/25 13:46 02/18/25 13:47 02/18/25 14:00 Temperature Pulse Rate 117 H 121 H 103 H Pulse Rate [Right Pulse Oximeter] Respiratory Rate 14 14 27 H Blood Pressure 86/50 L Blood Pressure [Ri ght Upper Arm] Pulse Oximetry 98 97 97 Oxygen Delivery Me thod 02/18/25 14:01 Temperature Pulse Rate 110 H Pulse Rate [Right Pulse Oximeter] Respiratory Rate 23 Blood Pressure 95/54 L Blood Pressure [Ri ght Upper Arm] Pulse Oximetry 97 Oxygen Delivery Me thod Course Vital Signs Vital signs: Initial Vital Signs Temperature 98.9 F 02/18/25 08:09 Temperature Source Temporal Artery Scan 02/18/25 08:09 Pulse Rate 95 02/18/25 08:09 Pulse Rhythm Regular 02/18/25 08:09 Pulse Strength 3+ Normal 02/18/25 08:09 Respiratory Rate 18 02/18/25 08:09 Blood Pressure 95/57 L 02/18/25 08:09 Blood Pressure Mean 69 L 02/18/25 08:09 Blood Pressure Position Sitting 02/18/25 08:09 Pulse Oximetry 98 02/18/25 08:09 Oxygen Delivery Method Room Air 02/18/25 08:09 Vital Signs Temperature 98.9 F 02/18/25 08:09 Pulse Rate 95 02/18/25 08:09 Respiratory Rate 18 02/18/25 08:09 Blood Pressure 95/57 L 02/18/25 08:09 Pulse Oximetry 98 02/18/25 08:09 Oxygen Delivery Method Room Air 02/18/25 08:09 Temperature 98.5 F 02/18/25 12:16 Pulse Rate 110 H 02/18/25 14:01 Respiratory Rate 23 02/18/25 14:01 Blood Pressure 95/54 L 02/18/25 14:01 Pulse Oximetry 97 02/18/25 14:01 Oxygen Delivery Method Room Air 02/18/25 10:26 Medications Administered Medications: Discontinued Medications Generic Name Dose Route Start Last Admin Trade Name Kitri PRN Reason Stop Dose Admin Acetaminophen 1,000 mg 02/18/25 10:20 02/18/25 10:31 Acetaminophen 500 Mg Tablet PO 02/18/25 10:21 1,000 mg ONCE ONE Administration Sodium Chloride 1,000 mls @ 6,000 mls/hr 02/18/25 08:30 02/18/25 09:50 0.9 % Sodium Chloride 1000 Ml IV 02/18/25 08:39 Infused .Q10M NAHED Infusion Ceftriaxone Sodium 2 gm/ 100 mls @ 200 mls/hr 02/18/25 09:28 02/18/25 10:25 Sodium Chloride IVPB 02/18/25 09:29 Infused ONCE ONE Infusion Sodium Chloride 1,000 mls @ 6,000 mls/hr 02/18/25 10:45 02/18/25 11:40 0.9 % Sodium Chloride 1000 Ml IV 02/18/25 10:54 Infused .Q10M NAHED Infusion Sodium Chloride 1,000 mls @ 125 mls/hr 02/18/25 11:53 02/18/25 12:14 0.9 % Sodium Chloride 1000 Ml IV 125 mls/hr .Q8H NAHED Administration Ondansetron HCl 4 mg 02/18/25 08:30 02/18/25 08:46 Ondansetron 2 Mg/Ml Inj IVP 02/18/25 08:31 4 mg ONCE ONE Administration Ondansetron HCl 4 mg 02/18/25 10:36 02/18/25 10:41 Ondansetron 2 Mg/Ml Inj IVP 02/18/25 10:37 4 mg ONCE ONE Administration Medical Decision Making MDM Narrative Medical decision making narrative: [age] year white female with nausea, dizziness, intermittent which she describes as occasional left-sided abdominal discomfort. She had a last menstrual period about 3 weeks ago has been trying to get . Will check test, IV fluid, IV Zofran, labs, hold off on imaging until we get some results. Will also check a viral studies nasal swab. Will see how she does clinically as well as her low follow-up labs to determine next course of action. Addendum 9:45 a.m. patient has a negative test, her white count elevated 15,000, her urinalysis is markedly positive with high mono white blood cells per high-powered field, her neutrophil count is elevated, or ER profile looks largely unremarkable other than nonfasting glucose of 139. Her CRP is elevated at 7. Her viral studies are negative. She has better color in feels better after her fluid. Does not have a fever. I suspect she may have mild pyelo and a could explain some of her left-sided abdominal intermittent discomfort. Does not have enough pain to be consistent with a kidney stone. Have given her 2 g of IV Rocephin. Will give her Augmentin 875 b.i.d. x1 week. Recommend careful monitoring, oral fluid intake, follow up with regular doctor in 2 days. Return to ED sooner problems or concerns. She and comfortable plan. Addendum 10:22 a.m.: The patient's did spike a temp to 103, she is given acetaminophen. Her blood pressure is actually better at 1:22 a.m. systolic. She feels better. I do think she has likely pyelonephritis. I think will keep her for a period of time and watch her symptoms. I think Rocephin would be adequate for her possible bacteremia and pyelonephritis. Will see how she does over the next couple of hours. She appears to be more adequately hydrated. I do not think at this point she constitutes sepsis just because of her temperature. I do think she has unknown source and appropriate treatment at this point. I do not think she needs additional IV fluid bolus as I think she has got adequate fluid. The patient was given an additional L of saline however just because she did spike a temperature, her vital signs remain adequate with blood pressure being reasonable. I think given her spike in temp we will follow her for period of time here in the ER. We do have a source as mention with her urine, and will see how that progresses. Addendum 11:25 a.m.: The patient does have a urinary tract infection, possibly pyelonephritis. At this point I think she feels better, give her 2 L of fluid. I do not think she really is septic although she did spike a temperature. We do have a positive urinalysis. She has received antibiotics already. I think continuing that and observing her blood pressure over the next hour so would be a reasonable thing to do. Of note is her lactate was normal at 1.1. She was given Tylenol. And Rocephin 2 g IV. If her blood pressure remained stable and she is discharged we will have her continue Augmentin 875 b.i.d. x7 days. Will need a recheck within the next 2-3 days. She can return to the ED any time sooner problems concerns continued symptoms or worsening. To be clear, in my opinion the patient did not meet sepsis criteria on presentation, she had a stable blood pressure which actually went up during her stay, she had no fever initially and her lactate was normal. She did spike a temperature after she had received antibiotics. We gave her a couple L of fluid. I do not think she still constitutes sepsis I think she certainly might have pyelonephritis. I also did not think she needed that volume of fluid given she was able to drink water without difficulty and likely will want to going home. Addendum 1:55 p.m. the patient complained of some intermittent right subclavicular discomfort and an x-ray was taken to by my independent review shows no acute changes. Her repeat lactate was normal in fact lower than it was on presentation when it was normal. The patient did receive IV fluid 2 L plus a IV maintenance fluid, she got Rocephin 2 g. I think she does have probably pyelonephritis and I would continue the Augmentin starting today 875 b.i.d. times a week, follow-up with primary care in 2-3 days, certainly sooner problems or concerns. It appears looking at her chart that she runs about 100 systolic and blood pressure. And she has been fairly consistent about 95, and her last blood pressure is 105 systolic. I think we can allow her to go home careful monitoring and follow-up any problems or concerns return to the ED promptly. Lab Data Labs: Lab Results 02/18/25 02/18/25 02/18/25 Range/Units 08:21 08:45 13:22 WBC 15.54 H (4.50-11.00) K/uL RBC 4.54 (4.00-5.20) m/uL Hgb 13.1 (12.0-16.0) gm/dL Hct 39.0 (33.0-51.0) % MCV 86 (80-100) fL MCH 29 (26-34) pg MCHC 34 (32-36) gm/dL RDW Coeff of Tee 11.7 (11.5-15.5) % Plt Count 223 (140-440) K/uL Neut % (Auto) 90.1 H (42.0-72.0) % Lymph % (Auto) 4.6 L (20-44) % Holmes % (Auto) 5.0 (0.0-11.0) % Eos % (Auto) 0.0 (0.0-7.0) % Baso % (Auto) 0.0 (0.0-3.0) % Neut # (Auto) 14.00 H (1.7-7.0) K/uL Lymph # (Auto) 0.70 L (0.90-2.90) K/uL Holmes # (Auto) 0.80 (0.00-0.90) K/UL Eos # (Auto) 0.00 (0.00-0.50) K/uL Baso # (Auto) 0.00 (0.00-0.30) K/uL Abs Immat Gran (auto) 0.00 (0.00-0.30) K/uL Imm/Tot Granulo (auto) 0.3 % Sodium 131 L (135-149) mmol/L Potassium 3.8 (3.6-5.1) mmol/L Chloride 99 (96-114) mmol/L Carbon Dioxide 24 (20-32) mmol/L Anion Gap 8 (7-15) mEq/L BUN 11 (5-24) mg/dL Creatinine 0.8 (0.5-1.5) mg/dL Estimated Creat Clear 106.14 Estimated GFR 98 ml/min Glucose 139 H (60-115) mg/dL Lactate 1.1 0.8 (0.5-1.9) mmol/L Calcium 9.4 (8.4-10.6) mg/dL Total Bilirubin 1.3 (0.1-1.5) mg/dL Direct Bilirubin 0.1 (0.0-0.5) mg/dL AST 22 (12-35) U/L ALT 16 (4-35) U/L Alkaline Phosphatase 64 (40-150) U/L C-Reactive Protein 7.0 H (0.5-1.0) mg/dL Total Protein 7.4 (6.0-8.3) g/dL Albumin 4.4 (3.3-5.0) g/dL Amylase 56 (18-89) U/L HCG, Qual Cancelled Urine Color Yellow (Yellow) Urine Appearance Slightly Cloudy A (Clear) Urine pH 8.5 (5.0-8.5) Ur Specific Dutton 1.020 (1.000-1.030) Urine Protein 2+ A (Negative) Urine Glucose (UA) Negative (Negative) Urine Ketones Trace A (Negative) Urine Blood Negative (Negative) Urine Nitrite Negative (Negative) Urine Bilirubin 1+ A (Negative) Urine Urobilinogen 1.0 (0.2-1.0) Ur Leukocyte Esterase Trace A (Negative) Urine RBC 2-5 A (0-2) Urine WBC 50-100 A (0-5) Ur Squamous Epith Cells Many A (None-Few) Urine Bacteria Many A (None) Urine HCG, Qual Negative (Negative) SARS-CoV-2 (PCR) Negative SARS-CoV-2 (Negative) Influenza Type A (PCR) Negative PCR FLU A (Negative) Influenza Type B (PCR) Negative PCR FLU B (Negative) RSV (PCR) Negative PCR RSV (Negative) Discharge Plan Discharge Clinical Impression: Nausea, Dizziness, Pyelonephritis Patient Disposition: Home w/ Parent or Adult Condition: Improved Additional Instructions: Start Augmentin today, get 1 tablet this morning and 1 this afternoon or evening. Fluids, rest, Tylenol as needed, follow up with regular doctor in 2-3 days. Return to the ER sooner problems concerns worsening or changes. Please call the [facility] on Thursday to schedule a follow up appointment with your primary care provider. The number to the clinic is [phone]. Activity Level: Light activity Discharge Diet: Regular Prescriptions: New amoxicillin-pot clavulanate 875-125 mg tablet 1 tab PO BID 7 Days Qty: 14 0RF No Action escitalopram oxalate 20 mg tablet 20 mg PO QDAY Qty: 90 0RF escitalopram oxalate 20 mg tablet 30 mg PO QDAY Qty: 90 0RF Rx Instructions: 25mg daily x2 weeks, then 30mg daily thereafter Follow Up/Referrals: Provider,Not a Local [Primary Care Provider, Family Practice] Stand Alone Forms: [employer] Info Instructions
[2025-02-18 08:42] LABS: Ur HCG Qualitative* Negative (Negative)
[2025-02-18] MEDS: ONDANSETRON 2 MG/ML inj 4 MG IVP ×2 (08:46→10:41)
[2025-02-18 08:55] LABS: Lactate* 1.1 mmol/L (0.5-1.9)
[2025-02-18 08:59] LABS: Hematocrit* 39.0 % (33.0-51.0); Hemoglobin* 13.1 gm/dL (12.0-16.0); Immature Granulocytes Pct Auto 0.3 %; Mean Corpuscular HGB Conc 34 gm/dL (32-36); Mean Corpuscular Hemoglobin 29 pg (26-34); Mean Corpuscular Volume 86 fL (80-100); RDW Coefficient of Variation % 11.7 % (11.5-15.5); Red Blood Count* 4.54 m/uL (4.00-5.20); White Blood Count* 15.54 K/uL (4.50-11.00)
[2025-02-18 09:05] LABS: Immature Granulocytes Abs Auto 0.00 K/uL (0.00-0.30); Lymphocytes Absolute Auto 0.70 K/uL (0.90-2.90); Slide Review Reflex No
[2025-02-18 09:14] LABS: Albumin* 4.4 g/dL (3.3-5.0); Chloride* 99 mmol/L (96-114); Potassium* 3.8 mmol/L (3.6-5.1); Sodium* 131 mmol/L (135-149)
[2025-02-18 09:16] LABS: Blood Urea Nitrogen* 11 mg/dL (5-24); Creatinine* 0.8 mg/dL (0.5-1.5); Est. Creatinine Clearance* 106.14; Estimated Glomerular Filt Rate 98 ml/min
[2025-02-18 09:17] LABS: Alanine Aminotransferase* 16 U/L (4-35); Alkaline Phosphatase* 64 U/L (40-150); Anion Gap 8 mEq/L (7-15); Aspartate Amino Transferase* 22 U/L (12-35); Bilirubin Direct* 0.1 mg/dL (0.0-0.5); Bilirubin Total* 1.3 mg/dL (0.1-1.5); Calcium* 9.4 mg/dL (8.4-10.6); Carbon Dioxide* 24 mmol/L (20-32); Glucose* 139 mg/dL (60-115); Total Protein* 7.4 g/dL (6.0-8.3)
[2025-02-18 09:38] LABS: PCR FLU A Negative PCR FLU A (Negative); PCR FLU B Negative PCR FLU B (Negative); PCR RSV Negative PCR RSV (Negative); SARS PCR* Negative SARS-CoV-2 (Negative)
[2025-02-18] MEDS: cefTRIAXone 2 GM in 0.9 % SODIUM CHLORIDE Mini-bag 100 ML IVPB (09:54)
--- NOTE | 2025-02-18 10:26 | PC.NURSE ---
temp 103.6 reported to MD, tylenol ordered, pt having chills, blankets for comfort
[2025-02-18] MEDS: ACETAMINOPHEN 500 MG TABLET 1000 MG PO (10:31)
--- NOTE | 2025-02-18 13:13 | CRLHL7_ITS ---
For Patients: As a result of the Cures Act, medical imaging exams and procedure reports are released immediately into your electronic medical record. You may view this report before your referring provider. If you have questions, please contact your health care provider. INDICATION: Pain and fever. TECHNIQUE: Chest 1 views. COMPARISON: None. FINDINGS: Minimal lower lobe airspace opacities. No significant pleural effusion or pneumothorax. Heart size and mediastinal contours are normal. IMPRESSION: 1. Minimal bibasilar opacities, likely atelectasis or overlying soft tissue. Dictated by Craig Stoll MD @ 02/18/2025 3:11:42 PM (Electronically Signed)
--- NOTE | 2025-02-18 13:25 | PC.NURSE ---
pt c/o pain in right shoulder earlier which seems to be radiating to her right chest, Dr Arias aware, CXR ordered
[2025-02-18 13:29] LABS: Lactate* 0.8 mmol/L (0.5-1.9)
== END 2025-02-18 14:27 | disposition home or self-care (01) ==
PROVIDERS: Emergency Provider Family Medicine
DX: N10 Acute pyelonephritis (principal)
CPT/HCPCS: 36415; 71045; 80048; 80076; 81001; 81025; 82150; 83605; 84703; 85025; 86140; 87086; 87631; 96361; 96365; 96375; 96376; 99284; 99285; A9270; J0696; J2405; J7030

== ENCOUNTER 2025-02-18 17:45 | Emergency (ER) | payer BC, SELFPAY ==
[2025-02-18] VITALS (19 sets, daily range): BP systolic 95–104; BP diastolic 58–61; PULSE 82–109; RESP 12–26; TEMP 36.5; O2SAT 96–98; BMI 24.4
--- NOTE | 2025-02-18 18:10 | ED_ITS ---
HPI - General Adult General Chief complaint: Hypotension Stated complaint: Low BP, UTI Time Seen by Provider: 02/18/25 18:04 History of Present Illness HPI narrative: 34-year-old female presenting today with hypotension. Patient was seen earlier today and diagnosed with pyelonephritis. She received 3 L of normal saline, IV Rocephin. Blood pressure remained low while she was here she did remain tachycardic. However she is young healthy and was feeling better after treatment. She was discharged home. She states that she continues to feel about the same, she is not feeling any worse. She denies vomiting. She does continue to have fevers that respond well to Tylenol. Her abdominal discomfort is minimal. She does feel slightly lightheaded especially when she has to stand up however. She noticed that her blood pressure was in the 90s systolic at home so she return for re-evaluation. Related Data Previous Rx's ?Medication ?Instructions ?Recorded escitalopram oxalate 20 mg tablet 20 mg PO QDAY #90 ta bs 02/15/25 escitalopram oxalate 20 mg tablet 30 mg (1.5 x 20 mg) PO QDAY #90 02/15/25 tabs amoxicillin 875 mg-potassium 1 tab PO BID 7 days #14 t abs 02/18/25 clavulanate 125 mg tablet ciprofloxacin HCl 500 mg tablet 500 mg PO BID 7 days # 14 tabs 02/18/25 Allergies Allergy/AdvReac Type Severity Reaction Status Date / Time No Known Drug Allergies Allergy Verified 02/18/25 18:02 Review of Systems Status of ROS: Reports: 10 or more systems reviewed and unremarkable except as noted in History and below [facility] Medical History Encounter for preconception consultation ?Z31.69 - Encounter for other general counseling and advice on procreation (ICD-10) Evaluate anatomy not seen on prior sonogram History of panic attacks ?Z86.59 - Personal history of other mental and behavioral disorders (ICD-10) Surgical History History of repair of ACL ?Z98.890 - Other specified postprocedural states (ICD-10) Family History Grandfather Heart disease Social History What is your current living situation?: I presently have a place to live Problems where you live: no known problems In the past 12 months, utilities in danger of being shut off: no In past 12 months, lack of transportation kept you from medical appts, meetings, work, or getting things needed for daily living: no In the past 12 mos, have been you worried that your food would run out before you had money to buy more?: never true In the past 12 mos, the food you bought just didn't last and you didn't have money to buy more?: never true Smoking Status: Never smoker How often does anyone, including family, friends and others, physically hurt you : never How often does anyone, including family, friends and others, insult or talk down to you: never How often does anyone, including family, friends and others, threaten you with harm: never How often does anyone, including family, friends and others, scream or curse at you: never Exam Narrative: Exam Narrative: Well-nourished well-developed patient in no acute distress. Alert and oriented. Answers questions appropriately. Mood and affect are appropriate. Thoughts are goal oriented and rational. No tangential or magical thinking noted. Patient speaks in full sentences without needing to catch her breath. Patient does not appear ill or toxic. HEENT: Normocephalic atraumatic. Pupils are equally round reactive to light. Extraocular muscles are intact. Conjunctivae are moist without any icterus noted. Moist mucous membranes. Posterior pharynx is normal. Cardiovascular: Tachycardic, regular rhythm. Lungs: Clear to auscultation bilaterally no wheezes rhonchi or rales are appreciated. Patient takes deep breaths without any discomfort. Abdomen: Soft and nontender nondistended with normal bowel sounds. No guarding or rebound. Extremities: Bilateral lower extremities are without edema. Skin: Well perfused without any obvious rashes. Const: Vital Signs, click to edit/add: Vital Signs - 24 hr 02/18/25 17:58 02/18/25 19:14 02/18/25 19:15 Temperature 97.7 F Pulse Rate 98 95 Pulse Rate [Right Pulse Oximeter] 109 H Respiratory Rate 18 Blood Pressure 104/60 Blood Pressure [Ri ght Upper Arm] 96/61 Pulse Oximetry 96 96 96 Oxygen Delivery Me thod Room Air 02/18/25 19:30 02/18/25 19:31 02/18/25 19:32 Temperature Pulse Rate 91 93 89 Pulse Rate [Right Pulse Oximeter] Respiratory Rate Blood Pressure 99/58 L Blood Pressure [Ri ght Upper Arm] Pulse Oximetry 96 97 97 Oxygen Delivery Me thod 02/18/25 19:41 02/18/25 19:45 02/18/25 20:00 Temperature Pulse Rate 89 89 96 Pulse Rate [Right Pulse Oximeter] Respiratory Rate 18 20 12 Blood Pressure 102/61 Blood Pressure [Ri ght Upper Arm] Pulse Oximetry 96 96 98 Oxygen Delivery Me thod 02/18/25 20:01 02/18/25 20:08 02/18/25 20:15 Temperature Pulse Rate 93 94 Pulse Rate [Right Pulse Oximeter] Respiratory Rate 24 16 Blood Pressure 98/61 Blood Pressure [Ri ght Upper Arm] Pulse Oximetry 98 98 Oxygen Delivery Me thod 02/18/25 20:21 02/18/25 20:30 02/18/25 20:41 Temperature Pulse Rate 87 82 87 Pulse Rate [Right Pulse Oximeter] Respiratory Rate 26 H Blood Pressure 101/58 L 95/58 L Blood Pressure [Ri ght Upper Arm] Pulse Oximetry 98 97 97 Oxygen Delivery Me thod Course Course ED Course: Did review patient's vital signs. She does typically run low in the 1 teens systolic. However the tachycardia is new. Did go ahead and do an EKG which does show sinus tachycardia with a pulse of 101. She does have normal QRS, QTC and OK intervals. Repeated blood work in her white cell count did increased to 17.7 , CRP did increased from 7-16.7. Remainder of blood work remained stable. Normal D-dimer. Because of her continued symptoms we also did an abdominal CT scan to rule out obstructive uropathy and this was unremarkable. While she was here she did receive 500 cc of LR and IV ciprofloxacin. Her blood pressure remained in the 90s systolic over her pulse did come down into the low to mid 90s. Vital Signs Vital signs: Initial Vital Signs Temperature 97.7 F 02/18/25 17:58 Temperature Source Temporal Artery Scan 02/18/25 17:58 Pulse Rate 109 H 02/18/25 17:58 Pulse Rhythm Regular 02/18/25 17:58 Pulse Strength 3+ Normal 02/18/25 17:58 Respiratory Rate 18 02/18/25 17:58 Blood Pressure 96/61 02/18/25 17:58 Blood Pressure Mean 72 02/18/25 17:58 Blood Pressure Position Sitting 02/18/25 17:58 Pulse Oximetry 96 02/18/25 17:58 Oxygen Delivery Method Room Air 02/18/25 17:58 Vital Signs Temperature 97.7 F 02/18/25 17:58 Pulse Rate 109 H 02/18/25 17:58 Respiratory Rate 18 02/18/25 17:58 Blood Pressure 96/61 02/18/25 17:58 Pulse Oximetry 96 02/18/25 17:58 Oxygen Delivery Method Room Air 02/18/25 17:58 Temperature 97.7 F 02/18/25 17:58 Pulse Rate 87 02/18/25 20:41 Respiratory Rate 29 H 02/18/25 20:30 Blood Pressure 95/58 L 02/18/25 20:41 Pulse Oximetry 97 02/18/25 20:41 Oxygen Delivery Method Room Air 02/18/25 17:58 Medications Administered Medications: Generic Name Dose Route Start Last Admin Trade Name Freq PRN Reason Stop Dose Admin Ciprofloxacin 400 mg in 200 mls @ 200 mls/hr 02/18/25 18:17 02/18/25 20:20 Ciprofloxacin IVPB Infused Q12H NAHED Infusion Discontinued Medications Generic Name Dose Route Start Last Admin Trade Name Freq PRN Reason Stop Dose Admin Lactated Ringer's 1,000 mls @ 1,000 mls/hr 02/18/25 18:16 02/18/25 20:21 Lactated Ringers 1000 Ml IV 02/18/25 19:15 1,000 mls/hr .Q1H ONE Administration Medical Decision Making MDM Narrative Medical decision making narrative: 34-year-old female with pyelonephritis and SIRS. Clinically I do not believe this patient is septic. At this time I think she is safe to continued outpatient treatment. I do want to switch her Augmentin to ciprofloxacin. Recommend follow-up with primary care provider in 48 hours. Return to the ER if she develops worsening symptoms. Lab Data Lab results reviewed: Yes I reviewed the patient's lab results Labs: Lab Results 02/18/25 Range/Units 18:30 WBC 17.77 H (4.50-11.00) K/uL RBC 4.04 (4.00-5.20) m/uL Hgb 11.8 L (12.0-16.0) gm/dL Hct 34.9 (33.0-51.0) % MCV 86 (80-100) fL MCH 29 (26-34) pg MCHC 34 (32-36) gm/dL RDW Coeff of Tee 11.7 (11.5-15.5) % Plt Count 195 (140-440) K/uL Neut % (Auto) 85.6 H (42.0-72.0) % Lymph % (Auto) 5.7 L (20-44) % [place] % (Auto) 8.1 (0.0-11.0) % Eos % (Auto) 0.0 (0.0-7.0) % Baso % (Auto) 0.1 (0.0-3.0) % Neut # (Auto) 15.20 H (1.7-7.0) K/uL Lymph # (Auto) 1.00 (0.90-2.90) K/uL [place] # (Auto) 1.40 H (0.00-0.90) K/UL Eos # (Auto) 0.00 (0.00-0.50) K/uL Baso # (Auto) 0.00 (0.00-0.30) K/uL Abs Immat Gran (auto) 0.10 (0.00-0.30) K/uL Imm/Tot Granulo (auto) 0.5 % D-Dimer Quant (PE/DVT) < 0.27 (0.00-0.50) ug/ml Sodium 132 L (135-149) mmol/L Potassium 3.3 L (3.6-5.1) mmol/L Chloride 102 (96-114) mmol/L Carbon Dioxide 24 (20-32) mmol/L Anion Gap 6 L (7-15) mEq/L BUN 10 (5-24) mg/dL Creatinine 0.8 (0.5-1.5) mg/dL Estimated Creat Clear 106.14 Estimated GFR 98 ml/min Glucose 129 H (60-115) mg/dL Lactate 1.0 (0.5-1.9) mmol/L Calcium 8.7 (8.4-10.6) mg/dL C-Reactive Protein 16.7 H (0.5-1.0) mg/dL Imaging Data CT scan - abdomen: Attestation: I have reviewed the pertinent imaging results. Radiologist's impression: TECHNIQUE: CT abdomen and pelvis without contrast. COMPARISON: None. FINDINGS: Evaluation of the visceral organs is limited due to lack of intravenous contrast. Lower chest: Unremarkable. Liver: Non cirrhotic morphology. No contour deforming mass.. Gallbladder and bile ducts: No stones or inflammation. No biliary dilatation. Pancreas: Unremarkable. Spleen: Normal in size. Adrenal glands: Unremarkable.. Kidneys: Normal in size. No suspicious masses, stones, or hydronephrosis. No perinephric fat stranding. GI tract: Stomach is decompressed, limiting evaluation, but appears grossly normal. Small and large bowel is normal in caliber without obstruction. Appendix is not seen; however, no acute inflammatory signs in the right lower quadrant. Moderate stool ball in the rectum. No pneumatosis, pneumoperitoneum or portal venous gas. Vasculature: Abdominal aorta is normal in caliber. Lymph nodes: No lymphadenopathy. Peritoneum/Abdominal Wall: Tiny fat containing umbilical hernia. No sign of mass or infiltration. No free air or significant free fluid. Pelvis: Unremarkable. No pelvic masses. Bones: No acute fractures. No aggressive appearing lytic or blastic osseous lesions.. IMPRESSION: Evaluation of the visceral organs is limited due to lack of intravenous contrast. 1. Within these limitations, no acute pathology in the abdomen or pelvis. 2. Moderate stool ball in the rectum which may correlate with constipation. Discharge Plan Discharge Clinical Impression: Pyelonephritis, SIRS (systemic inflammatory response syndrome) Patient Disposition: Home, Self-Care Condition: Stable Additional Instructions: Stop Augmentin. Start ciprofloxacin Follow-up with your primary care provider on Thursday. Return to the emergency department if you develop worsening abdominal pain, vomiting or weakness. Prescriptions: New ciprofloxacin HCl 500 mg tablet 500 mg PO BID 7 Days Qty: 14 0RF No Action amoxicillin-pot clavulanate 875-125 mg tablet 1 tab PO BID 7 Days Qty: 14 0RF escitalopram oxalate 20 mg tablet 20 mg PO QDAY Qty: 90 0RF escitalopram oxalate 20 mg tablet 30 mg PO QDAY Qty: 90 0RF Rx Instructions: 25mg daily x2 weeks, then 30mg daily thereafter Follow Up/Referrals: Provider,Not a Local [Primary Care Provider, Family Practice] Stand Alone Forms: MyHealth Info Instructions
--- NOTE | 2025-02-18 18:19 | CRLHL7_ITS ---
For Patients: As a result of the Century Cures Act, medical imaging exams and procedure reports are released immediately into your electronic medical record. You may view this report before your referring provider. If you have questions, please contact your health care provider. INDICATION: Left-sided pain TECHNIQUE: CT abdomen and pelvis without contrast. COMPARISON: None. FINDINGS: Evaluation of the visceral organs is limited due to lack of intravenous contrast. Lower chest: Unremarkable. Liver: Non cirrhotic morphology. No contour deforming mass.. Gallbladder and bile ducts: No stones or inflammation. No biliary dilatation. Pancreas: Unremarkable. Spleen: Normal in size. Adrenal glands: Unremarkable.. Kidneys: Normal in size. No suspicious masses, stones, or hydronephrosis. No perinephric fat stranding. GI tract: Stomach is decompressed, limiting evaluation, but appears grossly normal. Small and large bowel is normal in caliber without obstruction. Appendix is not seen; however, no acute inflammatory signs in the right lower quadrant. Moderate stool ball in the rectum. No pneumatosis, pneumoperitoneum or portal venous gas. Vasculature: Abdominal aorta is normal in caliber. Lymph nodes: No lymphadenopathy. Peritoneum/Abdominal Wall: Tiny fat containing umbilical hernia. No sign of mass or infiltration. No free air or significant free fluid. Pelvis: Unremarkable. No pelvic masses. Bones: No acute fractures. No aggressive appearing lytic or blastic osseous lesions.. IMPRESSION: Evaluation of the visceral organs is limited due to lack of intravenous contrast. 1. Within these limitations, no acute pathology in the abdomen or pelvis. 2. Moderate stool ball in the rectum which may correlate with constipation. Please note that all CT scans at this facility use dose modulation, iterative reconstruction, and/or weight-based dosing when appropriate to reduce radiation dose to as low as reasonably achievable. Dictated by Baylee Mahoney MD @ 02/18/2025 8:05:32 PM (Electronically Signed)
[2025-02-18 18:35] LABS: Lactate* 1.0 mmol/L (0.5-1.9)
[2025-02-18 18:46] LABS: Hematocrit* 34.9 % (33.0-51.0); Hemoglobin* 11.8 gm/dL (12.0-16.0); Immature Granulocytes Pct Auto 0.5 %; Mean Corpuscular HGB Conc 34 gm/dL (32-36); Mean Corpuscular Hemoglobin 29 pg (26-34); Mean Corpuscular Volume 86 fL (80-100); RDW Coefficient of Variation % 11.7 % (11.5-15.5); Red Blood Count* 4.04 m/uL (4.00-5.20); White Blood Count* 17.77 K/uL (4.50-11.00)
[2025-02-18 18:51] LABS: Chloride* 102 mmol/L (96-114); Potassium* 3.3 mmol/L (3.6-5.1); Sodium* 132 mmol/L (135-149)
[2025-02-18 18:52] LABS: Immature Granulocytes Abs Auto 0.10 K/uL (0.00-0.30); Lymphocytes Absolute Auto 1.00 K/uL (0.90-2.90); Slide Review Reflex No
[2025-02-18 18:55] LABS: Anion Gap 6 mEq/L (7-15); Blood Urea Nitrogen* 10 mg/dL (5-24); Calcium* 8.7 mg/dL (8.4-10.6); Carbon Dioxide* 24 mmol/L (20-32); Creatinine* 0.8 mg/dL (0.5-1.5); Est. Creatinine Clearance* 106.14; Estimated Glomerular Filt Rate 98 ml/min; Glucose* 129 mg/dL (60-115)
[2025-02-18 19:12] LABS: D Dimer Quantitative* < 0.27 ug/ml (0.00-0.50)
[2025-02-18] MEDS: CIPROFLOXACIN 400 MG/200 ML PIGGYBACK 200 MG IVPB (19:16)
[2025-02-18] MEDS: LACTATED RINGERS 1000 ML 1,000 ML IV (20:21)
== END 2025-02-18 21:05 | disposition home or self-care (01) ==
PROVIDERS: Emergency Provider Family Medicine
DX: N10 Acute pyelonephritis (principal); R65.10 Systemic inflammatory response syndrome (SIRS) of non-infectious origin without acute organ dysfunction
CPT/HCPCS: 36415; 74176; 80048; 83605; 85025; 85379; 86140; 94761; 96365; 99284; J0744; J7120

== ENCOUNTER 2025-03-30 17:25 | Outpatient (CLI) | payer BC, SELFPAY | END 2025-03-30 17:26 | disposition home or self-care (01) | LOC: AMB 04-03 17:14 | PROVIDERS: PCP Family Medicine; Visit Provider Emergency Medicine | DX: A41.9 Sepsis, unspecified organism (principal); T17.500A Unspecified foreign body in bronchus causing asphyxiation, initial encounter; J98.19 Other pulmonary collapse | CPT/HCPCS: A0425; A0429 ==